=== PATIENT | male | born 1940 | race Caucasian/White ===

== ENCOUNTER → 2021-03-20 | Outpatient (CLI) | payer OTHER, MEDICARE ==
[~2021-03-20] MED LIST: ADULT LOW DOSE81 MG PO; ALTACE 1.25 M1.25 MG PO; AMBIEN 5 MG TABL5 M1 PO; CARVEDILOL12.5 MG PO; CARVEDILOL3.125 MG PO; DAILY VALUE1 EAC1 PO; FISH OIL 1,0001 EAC9 PO; FUROSEMIDE 20 M20 M1 PO; GLUMETZA500 PO; IMDUR 60 MG TAB60 M1 PO; JARDIANCE10 MG PO; LIPITOR20 MG PO; PACERONE 200 M200 M1 PO; PLAVIX 75 MG TA75 MG PO; POTASSIUM20 PO
== END ==
LOC: LAB 09:38
PROVIDERS: ATTEND Orthopaedic Surgery
DX: Z01.812 Encounter for preprocedural laboratory examination (principal); Z20.822 Contact with and (suspected) exposure to COVID-19

== ENCOUNTER 2021-03-26 06:10 | Day surgery (SDC) | payer OTHER, MEDICARE ==
[~2021-03-26] VITALS: Ht 185.4 cm; Wt 122.9 kg
[2021-03-26 07:17] VITALS: BP 123/63
[2021-03-26 09:08] VITALS: BP 123/63
--- NOTE | 2021-03-26 11:18 | O ---
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 PROCEDURES: Right knee arthroscopy with partial medial meniscectomy and debridement of patellar and medial compartment chondromalacia. SURGEON: Zafar Julian MD. INDICATIONS: This heavy, but still active and independent 80-year-old gentleman complains of progressive right knee pain. His clinical exam and history and imaging studies confirm moderate degenerative change with some tearing of the medial meniscus. Given his advanced age and some chronic symptoms, we have discussed more aggressive management with total knee replacement. However, the patient states his symptoms are moderate and he would hope to avoid knee replacement if possible. Therefore, we elected to go ahead with arthroscopic debridement. DESCRIPTION OF PROCEDURE: The patient was taken to the operating room where he was placed under general anesthesia. Prophylactic intravenous antibiotics were administered. The right knee and leg were meticulously prepped and draped. A thigh tourniquet was inflated to 300 mmHg. A lateral suprapatellar inflow cannula was placed. The arthroscope and probe were introduced. The various compartments were sequentially visualized and documented with arthroscopic photography. In general, there was much less cartilage damage and degenerative wear that I might have expected. There was some loose cartilage debris, which was evacuated. The joint was copiously irrigated. There was also some mild synovial hypertrophy, which was debrided for visualization purposes. The medial compartment did reveal moderate degenerative changes in the mid and posterior aspect of the medial meniscus. This involved about the inner one-third of the meniscus and was trimmed using a small shaver. The outer two-thirds of the meniscus were still in good shape and no further debridement that was necessary. [address] [address] OPERATIVE REPORT Name: BHASKAR FERRER Room #: 150-1 [facility]#: [id number] Admission: 03/26/21 Attend Phys: Zafar Julian MD Discharge: Date of : 40 Report #: [id number] There is grade II chondromalacia on the medial femoral condyle, which required very limited gentle debridement. There were no areas of exposed subchondral bone nor any marked major or loosened areas of cartilage damage. The cartilage on the medial tibial plateau was in better shape with only [id number] grade I damage with some fissuring and grooving, but no significant other cartilage problems. The lateral compartment revealed similar but slightly less severe damage involving the inner margin of the lateral meniscus and mild grade I to grade II chondromalacia on the lateral femoral condyle and tibial plateau. These areas were very gently debrided and irrigated using a small shaver. No other significant abnormalities were identified. The patellofemoral articulation reveals slightly greater patellar chondromalacia, but without exposed subchondral bone. This was grade II damage with similar grade II damage on the femoral trochlear region. Very limited debridement here was necessary. There was some loose debris in the suprapatellar pouch, which was evacuated. The intercondylar notch reveals mild bony hypertrophy, but no significant impingement. The cruciate ligaments appeared to be intact and functioning nicely. The entire knee was copiously irrigated. All excess fluid was evacuated from the knee. The knee was then injected with 80 mg of Depo-Medrol and 20 mL of 0.5% Marcaine with epinephrine. The puncture sites were closed with interrupted nylon suture. A sterile dressing was applied. The patient was awakened and returned to recovery room in good condition. MD LU King/EMMIE <ELECTRONICALLY SIGNED> By: Zafar Julian MD 03/26/21 [id number] Zafar Julian MD /nt
== END 2021-03-26 09:08 | disposition home or self-care (01) ==
LOC: OR 06:10 → TBA 06:10 → OR 09:08
PROVIDERS: ATTEND Orthopaedic Surgery
DX: M23.231 Derangement of other medial meniscus due to old tear or injury, right knee (principal); M23.261 Derangement of other lateral meniscus due to old tear or injury, right knee; M94.261 Chondromalacia, right knee; I10 Essential (primary) hypertension; E11.9 Type 2 diabetes mellitus without complications; E78.5 Hyperlipidemia, unspecified; G47.30 Sleep apnea, unspecified; Z98.890 Other specified postprocedural states; Z79.899 Other long term (current) drug therapy; Z87.891 Personal history of nicotine dependence; Z90.49 Acquired absence of other specified parts of digestive tract; Z85.828 Personal history of other malignant neoplasm of skin; Z98.41 Cataract extraction status, right eye; Z98.42 Cataract extraction status, left eye; Z87.442 Personal history of urinary calculi; Z88.8 Allergy status to other drugs, medicaments and biological substances; Z91.041 Radiographic dye allergy status
CPT/HCPCS: 50010; 50101; 50405; 56526; 57103; 57180; 58577; 58589; 62110; 62900; 70005